=== PATIENT | female | born 1995 | race Caucasian/White ===

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

== ENCOUNTER 2017-01-01 21:40 | Emergency (ER) | payer OTHER ==
[~2017-01-01] VITALS: Ht 157.5 cm; Wt 84.1 kg
[~2017-01-01 21:40] MED LIST changes: +LIDODERM 5% P1 PATCH TD
[2017-01-01 22:39] LABS: HEMATOCRIT 43.5 % (36.0-46.0); MCH 26.2 PG (29.0-34.0); MCHC 31.5 G/DL (30.0-36.0); MCV 83.2 FL (83-99); MEAN PLAT.VOLUME 9.3 uM^3 (9.5-12.4); PLATELET COUNT 298 K/uL (156-360); RBC DIS.WIDTH-SD 39.3 % (39-53); RED BLOOD COUNT 5.23 M/uL (3.80-5.20); WHITE BLOOD COUNT 13.5 K/uL (4.1-10.2)
[2017-01-01 22:53] LABS: CHLORIDE 106 mEq/L (99-109); POTASSIUM 3.4 mEq/L (3.7-5.4); SODIUM 141 mEq/L (136-147)
[2017-01-01 22:54] LABS: GLUCOSE 89 mg/dL (70-99)
[2017-01-01 22:56] LABS: ANION GAP 7 MEQ/L (2-14)
[2017-01-01 22:58] LABS: GFR ESTIMATE (CALCULATED) > 59 mL/min/
[2017-01-01 22:59] LABS: UREA NITROGEN (BUN) 11 mg/dL (9-23)
[2017-01-01 23:06] LABS: QUANTITATIVE HCG < 4.0 MIU/ML
[2017-01-01 23:13] LABS: ADD MIUA? YES; BILIRUBIN NEGATIVE; BLOOD NEGATIVE; COLOR YELLOW ((YELLOW)); GLUCOSE (STRIP) NEGATIVE; KETONES NEGATIVE; LEUKOCYTES SMALL; NITRITE NEGATIVE; PROTEIN (STRIP) NEGATIVE; SPECIFIC GRAVITY 1.021 (1.000-1.030); UROBILINOGEN 0.2 MG/DL (0.2-1.0)
[2017-01-01 23:30] LABS: EPITHELIAL CELLS RARE /HPF; MUCUS NONE SEEN /LPF; RED BLOOD CELLS 0-5 /HPF (0-5)
[2017-01-01 23:31] LABS: AMORPHOUS URATES CRYSTALS 2+; BACTERIA 1+ /HPF; CASTS NONE SEEN /LPF; CRYSTALS PRESENT
[2017-01-01] MEDS ORDERED: ULTRAM50 MG PO (23:43)
[2017-01-01] MEDS ORDERED: KEFLEX500 MG PO (23:43)
[2017-01-01] MEDS ORDERED: FLEXERIL10 MG PO (23:43)
[2017-01-02 00:40] VITALS: BP 106/62
== END 2017-01-02 00:42 | disposition home or self-care (01) ==
LOC: EME 21:40
PROVIDERS: Nurse Practitioner Family
DX: M54.16 Radiculopathy, lumbar region (principal); N39.0 Urinary tract infection, site not specified; D72.829 Elevated white blood cell count, unspecified; R51 Headache; V49.50XD Passenger injured in collision with unspecified motor vehicles in traffic accident, subsequent encounter
CPT/HCPCS: 72131; 80048; 81003; 84702; 85027; 99281; 99284; J1885

== ENCOUNTER 2017-01-12 08:11 | Emergency (ER) | payer OTHER ==
[~2017-01-12] VITALS: Ht 157.5 cm; Wt 83.3 kg
[~2017-01-12 08:11] MED LIST changes: +KEFLEX500 MG PO; +ULTRAM50 MG PO
[2017-01-12] MEDS ORDERED: MEDROL DOSEPAK4 MG PO (10:55)
[2017-01-12] MEDS ORDERED: FLEXERIL10 MG PO (10:55)
[2017-01-12 11:04] VITALS: BP 137/87
== END 2017-01-12 11:05 | disposition home or self-care (01) ==
LOC: EME 08:11
DX: M54.41 Lumbago with sciatica, right side (principal); V89.2XXD Person injured in unspecified motor-vehicle accident, traffic, subsequent encounter
CPT/HCPCS: 99281; 99283

== ENCOUNTER 2017-05-21 22:18 | Emergency (ER) | payer OTHER ==
[~2017-05-21] VITALS: Ht 157.5 cm; Wt 89.4 kg
[~2017-05-21 22:18] MED LIST changes: +MEDROL DOSEPAK4 MG PO
[2017-05-21 22:54] LABS: HEMATOCRIT 43.6 % (36.0-46.0); MCH 27.2 PG (29.0-34.0); MCHC 32.3 G/DL (30.0-36.0); MCV 84.2 FL (83-99); MEAN PLAT.VOLUME 9.4 uM^3 (9.5-12.4); PLATELET COUNT 338 K/uL (156-360); RBC DIS.WIDTH-CV 13.1 % (11.8-14.6); RBC DIS.WIDTH-SD 40.1 % (39-53); RED BLOOD COUNT 5.18 M/uL (3.80-5.20); WHITE BLOOD COUNT 13.9 K/uL (4.1-10.2)
[2017-05-21 23:04] LABS: CHLORIDE 105 mEq/L (99-109); POTASSIUM 4.1 mEq/L (3.7-5.4); SODIUM 138 mEq/L (136-147)
[2017-05-21 23:07] LABS: GLUCOSE 93 mg/dL (70-99)
[2017-05-21 23:08] LABS: ANION GAP 7 MEQ/L (2-14)
[2017-05-21 23:09] LABS: TOTAL BILIRUBIN 0.3 mg/dL (0.0-1.0)
[2017-05-21 23:10] LABS: ALKALINE PHOSPHATASE 61 IU/L (3-129); GFR ESTIMATE (CALCULATED) > 59 mL/min/
[2017-05-21 23:11] LABS: UREA NITROGEN (BUN) 13 mg/dL (9-23)
[2017-05-21 23:20] LABS: QUANTITATIVE HCG < 4.0 MIU/ML
[2017-05-21 23:31] LABS: ADD MIUA? YES; BILIRUBIN NEGATIVE; BLOOD NEGATIVE; COLOR AMBER ((YELLOW)); GLUCOSE (STRIP) NEGATIVE; KETONES NEGATIVE; LEUKOCYTES TRACE; NITRITE NEGATIVE; PROTEIN (STRIP) 30; SPECIFIC GRAVITY 1.023 (1.000-1.030); UROBILINOGEN 0.2 MG/DL (0.2-1.0)
[2017-05-21 23:49] LABS: BACTERIA 1+ /HPF; CASTS NONE SEEN /LPF; CRYSTALS PRESENT; EPITHELIAL CELLS 2+ /HPF; MUCUS RARE /LPF; RED BLOOD CELLS NONE SEEN /HPF (0-5); UCUL ADDED? NO; WHITE BLOOD CELLS 0-5 /HPF (0-5)
[2017-05-21 23:50] LABS: AMORPHOUS URATES CRYSTALS 3+
[2017-05-22] MEDS ORDERED: PRILOSEC20 MG PO (00:20)
[2017-05-22] MEDS ORDERED: ZOFRAN4 MG PO (00:26)
[2017-05-22 00:29] VITALS: BP 126/74
== END 2017-05-22 00:31 | disposition home or self-care (01) ==
LOC: EME 22:18
DX: K92.0 Hematemesis (principal); F41.9 Anxiety disorder, unspecified; F32.9 Major depressive disorder, single episode, unspecified; Z72.0 Tobacco use
CPT/HCPCS: 71020; 80053; 81003; 84702; 85027; 99281; 99284

== ENCOUNTER 2017-08-01 17:51 | Emergency (ER) | payer OTHER ==
[~2017-08-01] VITALS: Ht 154.9 cm; Wt 88.9 kg
[~2017-08-01 17:51] MED LIST changes: +PRILOSEC20 MG PO; +ZOFRAN4 MG PO
[2017-08-01 19:39] VITALS: BP 120/65
== END 2017-08-01 19:41 | disposition home or self-care (01) ==
LOC: EME 17:51
DX: G43.909 Migraine, unspecified, not intractable, without status migrainosus (principal); F17.200 Nicotine dependence, unspecified, uncomplicated
CPT/HCPCS: 99281; 99284; J1885; J2765

== ENCOUNTER 2017-11-10 19:55 | Emergency (ER) | payer OTHER ==
[~2017-11-10] VITALS: Ht 154.9 cm; Wt 89.9 kg
[2017-11-10 19:56] VITALS: BP 122/84
[2017-11-10 20:25] LABS: HEMATOCRIT 40.8 % (36.0-46.0); HEMOGLOBIN 13.6 G/DL (11.9-15.5); MCH 27.6 PG (29.0-34.0); MCHC 33.3 G/DL (30.0-36.0); MCV 82.9 FL (83-99); PLATELET COUNT 309 K/uL (156-360); RBC DIS.WIDTH-CV 13.4 % (11.8-14.6); RBC DIS.WIDTH-SD 40.5 % (39-53); RED BLOOD COUNT 4.92 M/uL (3.80-5.20); WHITE BLOOD COUNT 19.5 K/uL (4.1-10.2)
[2017-11-10 20:26] LABS: APPEARANCE SL.HAZY ((CLEAR)); BILIRUBIN NEGATIVE; BLOOD NEGATIVE; COLOR YELLOW ((YELLOW)); GLUCOSE (STRIP) NEGATIVE; KETONES 5; LEUKOCYTES NEGATIVE; NITRITE NEGATIVE; PROTEIN (STRIP) 30; SPECIFIC GRAVITY 1.027 (1.000-1.030); UROBILINOGEN 0.2 MG/DL (0.2-1.0)
[2017-11-10 20:49] LABS: BACTERIA RARE /HPF; EPITHELIAL CELLS RARE /HPF; MUCUS TRACE /LPF; UCUL ADDED? NO; WHITE BLOOD CELLS 0-5 /HPF (0-5)
== END 2017-11-10 22:46 | disposition left against medical advice (07) ==
LOC: EME 19:55
DX: O20.9 Hemorrhage in early pregnancy, unspecified (principal); Z3A.01 Less than 8 weeks gestation of pregnancy; O99.331 Smoking (tobacco) complicating pregnancy, first trimester; F17.200 Nicotine dependence, unspecified, uncomplicated; D72.829 Elevated white blood cell count, unspecified
CPT/HCPCS: 76801; 81003; 84702; 85027; 86900; 86901

== ENCOUNTER 2018-01-04 11:17 | Emergency (ER) | payer OTHER ==
[~2018-01-04] VITALS: Ht 157.5 cm; Wt 92.5 kg
[2018-01-04 13:24] LABS: APPEARANCE CLOUDY ((CLEAR)); BILIRUBIN NEGATIVE; BLOOD NEGATIVE; COLOR YELLOW ((YELLOW)); GLUCOSE (STRIP) NEGATIVE; KETONES NEGATIVE; LEUKOCYTES NEGATIVE; NITRITE NEGATIVE; PROTEIN (STRIP) NEGATIVE; SPECIFIC GRAVITY 1.024 (1.000-1.030)
[2018-01-04 13:42] LABS: EPITHELIAL CELLS 1+ /HPF; RED BLOOD CELLS NONE SEEN /HPF (0-5); WHITE BLOOD CELLS NONE SEEN /HPF (0-5)
[2018-01-04 13:43] LABS: AMORPHOUS URATES CRYSTALS 1+; BACTERIA 1+ /HPF; CALCIUM OXALATE CRYSTALS FEW /HPF; MUCUS NONE SEEN /LPF; UCUL ADDED? NO
[2018-01-04] MEDS ORDERED: KEFLEX500 MG PO (14:35)
[2018-01-04 14:45] VITALS: BP 121/77
== END 2018-01-04 14:45 | disposition home or self-care (01) ==
LOC: EME 11:17
DX: O99.89 Other specified diseases and conditions complicating pregnancy, childbirth and the puerperium (principal); M54.5 Low back pain; Z87.39 Personal history of other diseases of the musculoskeletal system and connective tissue; O23.42 Unspecified infection of urinary tract in pregnancy, second trimester; O99.342 Other mental disorders complicating pregnancy, second trimester; F41.9 Anxiety disorder, unspecified; F32.9 Major depressive disorder, single episode, unspecified; Z3A.15 15 weeks gestation of pregnancy; Z87.891 Personal history of nicotine dependence; Z88.6 Allergy status to analgesic agent; Z88.5 Allergy status to narcotic agent
CPT/HCPCS: 80053; 81003; 84702; 85027; 99281; 99285